=== PATIENT | female | born 1960 | race Caucasian/White ===

== ENCOUNTER 2023-09-01 12:20 | Day surgery (SDC) | payer BC, SELFPAY ==
[2023-09-01] MEDS ORDERED: Midazolam HCl 2 mg/2 ml Vial ONE (13:16)
[2023-09-01] MEDS ORDERED: SUGAMMADEX SODIUM 200 MG/2 ML VIAL ONE (13:16)
[2023-09-01] MEDS ORDERED: PROPOFOL 20 ML ONE (13:16)
[2023-09-01] MEDS ORDERED: fentaNYL PF 100 MCG/2 ML SYRINGE ONE ×2 (13:16→15:27)
[2023-09-01] MEDS ORDERED: EPINEPHrine 1 MG/ML VIAL ONE (13:30)
[2023-09-01] MEDS ORDERED: Bupivacaine 0.25% HCL 30 ML VIAL ONE (13:30)
[2023-09-01] MEDS ORDERED: Dexamethasone 4 mg/ml Vial ONE (13:41)
[2023-09-01] MEDS ORDERED: Ondansetron PF 4 MG/2 ML Vial ONE (13:41)
[2023-09-01] MEDS ORDERED: Rocuronium Bromide 10 MG/ML (10ML VIAL) ONE (13:41)
[2023-09-01] MEDS ORDERED: Lidocaine 1% PF 5 ML VIAL ONE (13:41)
[2023-09-01] MEDS ORDERED: Ketorolac Tromethamine 30 MG (1 mL) VIAL ONE (16:11)
[2023-09-01] MEDS ORDERED: PHENYLEPHRINE-NS 100 MCG/ML 10 ML SYRINGE ONE (16:11)
== END 2023-09-01 18:20 | disposition home or self-care (01) ==
LOC: SDC/OP 12:20
PROVIDERS: ATTEND Emergency Medicine Emergency Medical Services
PROC: 0FT44ZZ Resection of Gallbladder, Percutaneous Endoscopic Approach (ICD-10-PCS; principal; 2023-09-01)
DX: K80.12 Calculus of gallbladder with acute and chronic cholecystitis without obstruction (principal); I10 Essential (primary) hypertension; Z88.5 Allergy status to narcotic agent; Z91.040 Latex allergy status; Z98.51 Tubal ligation status; Z88.2 Allergy status to sulfonamides
CPT/HCPCS: 88304; C1889; J0171; J0665; J1100; J1885; J2250; J2405; J2704

== ENCOUNTER 2024-02-13 13:51 | Outpatient (CLI) | payer BC, OTHER | END 2024-02-13 13:52 | disposition home or self-care (01) | LOC: BICCT 13:51 | PROVIDERS: ATTEND Internal Medicine Gastroenterology | DX: K21.9 Gastro-esophageal reflux disease without esophagitis (principal); K80.20 Calculus of gallbladder without cholecystitis without obstruction; K44.9 Diaphragmatic hernia without obstruction or gangrene; R10.9 Unspecified abdominal pain; J98.11 Atelectasis; Z90.49 Acquired absence of other specified parts of digestive tract | CPT/HCPCS: 74160; 82565 ==

== ENCOUNTER 2025-03-18 07:57 | Outpatient (CLI) | payer OTHER | END 2025-03-18 07:58 | disposition home or self-care (01) | LOC: BICCT 07:57 | PROVIDERS: ATTEND Physician Assistant | DX: Z82.49 Family history of ischemic heart disease and other diseases of the circulatory system (principal); Z13.6 Encounter for screening for cardiovascular disorders; K44.9 Diaphragmatic hernia without obstruction or gangrene; I25.10 Atherosclerotic heart disease of native coronary artery without angina pectoris | CPT/HCPCS: 75571 ==